=== PATIENT | female | born 1960 ===

== ENCOUNTER 2024-11-20 09:00 | Day surgery (SDC) | payer OTHER ==
[2024-11-12 07:54] LABS: BASO % 0.6 % (0.1-1.2); EOS # 0.13 (0.04-0.54); EOS % 2.0 % (0.7-7.0); LYMPH # 2.17 (1.18-3.74); LYMPH % 34.0 % (19.3-53.1); MEAN PLATELET VOLUME 11.40 fl (9.4-12.4); MONO # 0.51 (0.24-0.82); MONO % 8.0 % (4.7-12.5); NEUT # 3.52 (1.56-6.13); NEUT % 55.2 % (34.0-71.1); RED CELL DISTRIBUTION WIDTH 14.0 % (11.6-14.4)
[2024-11-12 08:02] VITALS: BP 140/82
[2024-11-12 08:15] LABS: URINE APPEARANCE Clear; URINE BILIRRUBIN Negative (NEGATIVE); URINE BLOOD Negative; URINE COLOR Yellow; URINE GLUCOSE Negative (NEGATIVE); URINE KETONE Trace (NEGATIVE); URINE LEUKOCYTE Negative; URINE NITRATE Negative; URINE PROTEIN Negative (NEGATIVE); URINE UROBILINOGEN 0.2 E.U./dl
[2024-11-12 08:20] LABS: URINE BACTERIA 7.1 uL (0.0-1933); URINE CAST 0.00 uL (0.0-1.40); URINE EPITHELIAL CELLS 10.1 uL (0.0-38.8); URINE RBC 3.0 uL (0.0-20.8); URINE WBC 9.5 uL (0.0-23.2)
[2024-11-12 08:25] LABS: INR 1.03
[2024-11-12 08:45] LABS: GLUCOSE FASTING 91.0 mg/dL (65-100)
[2024-11-12 08:46] LABS: ALT/SGPT 41.0 U/L (12-78); AST/SGOT 28.0 U/L (15-37); BILIRUBIN TOTAL 0.41 mg/dL (0.3-1.2); BUN CREA RATIO 23.0 (7.0-25.0); CREATININE SERUM 0.73 mg/dL (0.55-1.02); GFR 80.26; GLOBULINA 4.1 G/DL (2.4-3.5); OSMOLALITY SERUM 288.0 MOSM/KG (275-295)
[~2024-11-20] VITALS: Ht 157.5 cm; Wt 63.5 kg
[~2024-11-20 09:00] MED LIST: ECOTRIN81 MG PO; LIPITOR40 M1 PO; PLAVIX75 MG PO; TOPROL XL25 M1 PO
[2024-11-20] MEDS ORDERED: POVIDONE-IODINE 118 ML BOTT TOP ONE (13:36)
[2024-11-20] MEDS ORDERED: RINGERS SOLUTION,LACTATED 1,000 ML IV SCH (15:30)
== END 2024-11-20 19:50 | disposition home or self-care (01) ==
LOC: CIR.AMB 09:00
PROVIDERS: ATTEND Obstetrics & Gynecology
DX: N85.00 Endometrial hyperplasia, unspecified (principal); N72 Inflammatory disease of cervix uteri